=== PATIENT | male | born 1985 | race Caucasian/White ===

== ENCOUNTER 2016-10-30 03:01 | Emergency (ER) | payer BC ==
[2016-10-30] MEDS ORDERED: LORazepam 2 MG/ML MDV IVPUSH ONE (03:41)
[2016-10-30] MEDS ORDERED: MVI, Adult with Vitamin K 10 ML, Thiamine 100 MG, Folic Acid 1 MG in Sodium Chloride 0.... IV ONE ×4 (03:41)
[2016-10-30] MEDS ORDERED: Pantoprazole 40 MG Vial IVPUSH ONE (03:42)
[2016-10-30] MEDS ORDERED: LORazepam 2 MG/ML MDV IV PRN (03:42)
--- NOTE | 2016-10-30 03:49 | EDM.PDOCBH ---
ED HPI GENERAL MEDICAL PROBLEM - General Chief Complaint: Drug or Alcohol Abuse Stated Complaint: ALCOHOL DETOX Time Seen by Provider: 10/30/16 03:44 Source of Information: Reports: Patient, RN - History of Present Illness INITIAL COMMENTS - FREE TEXT/NARRATIVE: He was dropped off by his brother in the ER [place]. He states that he has a heavy alcohol use history drinking over one liter of whiskey daily for many months. He has been trying to decrease intake. Now he has muscle aches. He is scheduled to leave at about 9 am this am to go to [place] to catch a flight to [place] to enter rehabilitation for alcoholism. His brother was very tired and, according to the patient , asked if he could stay here until 9 am. He denies ongoing medical problems He has diffuse body aches and some chest pain no vomiting general malaise last drink about two hours ago. Left Upper Arm Pain Score (Numeric/FACES): 9 - Related Data Allergies Allergy/AdvReac Type Severity Reaction Status Date / Time No Known Allergies Allergy Verified 10/30/16 03:20 Home Meds: Home Meds . [No Known Home Meds] 05/02/14 [History] Past Medical History - Past Health History Medical/Surgical History: Denies Medical/Surgical History Cardiovascular History: Denies: Heart Failure, Hypertension, [place], Pulmonary Hypertension Respiratory History: Denies: COPD Gastrointestinal History: Denies: Cirrhosis Neurological History: Denies: CVA Psychiatric History: Reports: Addiction Endocrine/Metabolic History: Denies: Diabetes, Type I, Diabetes, Type II - Infectious Disease History Infectious Disease History: Reports: Chicken Pox Social & Family History - Family History Family Medical History: Noncontributory - Tobacco Use Smoking Status *Q: Never Smoker Second Hand Smoke Exposure: No - Caffeine Use Caffeine Use: Reports: None - Alcohol Use Days Per Week of Alcohol Use: 7 Number of Drinks Per Day: 10 Total Drinks Per Week: 70 - Recreational Drug Use Recreational Drug Use: No ED ROS GENERAL - Review of Systems Review Of Systems: See Below (as per HPI) ED EXAM, BEHAVIORAL HEALTH - Physical Exam Exam: See Below Text/Narrative:: alert pleasant and cooperative he appears anxious normal gait no tremor no confusion lungs CTA heart RRR without m abdomen non tender anterior chest wall tenderness no motor asymmetry EKG: NST ; borderline ST elevation COURSE, BEHAVIORAL HEALTH COMP - Course Vital Signs: Last Vital Signs Temp 97.4 F 10/30/16 03:05 Pulse 87 10/30/16 06:00 Resp 18 10/30/16 06:00 BP 109/61 10/30/16 06:00 Pulse Ox 96 10/30/16 06:00 Orders, Labs, Meds: Active Orders 24 hr Category Date Time Status Cardiac Monitoring [RC] . DIRECTED Care 10/30/16 03:50 Active EKG 12 Lead [EKG Documentation Completion] [RC] STAT Care 10/30/16 03:44 Active CXR [Chest 1V Frontal] [CR] Stat Exams 10/30/16 03:51 Taken LORazepam [Ativan] Med 10/30/16 03:42 Active 2 mg IV Q2H PRN Medication Orders Lorazepam (Ativan) 2 mg IV Q2H PRN PRN Reason: Anxiety Laboratory Tests 10/30/16 10/30/16 10/30/16 Range/Units 03:42 03:42 03:47 WBC 4.83 (4.0-11.0) K/uL RBC 5.38 (4.50-5.90) M/uL Hgb 12.5 L (13.0-17.0) g/dL Hct 37.3 L (38.0-50.0) % MCV 69.3 L (80.0-98.0) fL MCH 23.2 L (27.0-32.0) pg MCHC 33.5 (31.0-37.0) g/dL RDW Std Deviation 37.3 (28.0-62.0) fl RDW Coeff of Joe 15 (11.0-15.0) % Plt Count 215 (150-400) K/uL MPV 9.20 (7.40-12.00) fL Neut % (Auto) 43.5 L (48.0-80.0) % Lymph % (Auto) 43.3 H (16.0-40.0) % [place] % (Auto) 11.8 (0.0-15.0) % Eos % (Auto) 0.4 (0.0-7.0) % Baso % (Auto) 1.0 (0.0-1.5) % Neut # (Auto) 2.1 (1.4-5.7) K/uL Lymph # (Auto) 2.1 (0.6-2.4) K/uL [place] # (Auto) 0.6 (0.0-0.8) K/uL Eos # (Auto) 0.0 (0.0-0.7) K/uL Baso # (Auto) 0.1 (0.0-0.1) K/uL Nucleated RBC % 0.6 /100WBC Nucleated RBCs # 0 K/uL Sodium 140 (136-146) mmol/L Potassium 3.9 (3.5-5.1) mmol/L Chloride 103 (98-110) mmol/L Carbon Dioxide 23 (21-31) mmol/L BUN 14 (6.0-23.0) mg/dL Creatinine 0.8 (0.6-1.5) mg/dL Est Cr Clr Drug Dosing 155.55 mL/min Estimated GFR (MDRD) > 60.0 ml/min Glucose 109 (60-110) mg/dL Calcium 9.5 (8.8-10.8) mg/dL Magnesium 1.6 (1.5-2.3) mEq/L Total Bilirubin 1.0 (0.1-1.5) mg/dL AST 87 H (5-40) IU/L ALT 90 H (8-54) IU/L Alkaline Phosphatase 77 (40-150) Creatine Kinase 223 (9-236) IU/L Troponin I (0.0-0.29) NG/ML Total Protein 7.3 (6.0-8.0) g/dL Albumin 4.2 (3.5-5.0) g/dL Globulin 3.1 (2.0-3.5) g/dL Albumin/Globulin Ratio 1.4 (1.3-2.8) Urine Color Urine Appearance Urine pH (5.0-8.0) Ur Specific [place] (1.001-1.035) Urine Protein (NEGATIVE) mg/dL Urine Glucose (UA) (NEGATIVE) mg/dL Urine Ketones (NEGATIVE) mg/dL Urine Occult Blood (NEGATIVE) Urine Nitrite (NEGATIVE) Urine Bilirubin (NEGATIVE) Urine Urobilinogen (<2.0) EU/dL Ur Leukocyte Esterase (NEGATIVE) Urine RBC (0-2/HPF) Urine WBC (0-5/HPF) Ur Epithelial Cells (NONE-FEW) Urine Bacteria (NEGATIVE) Urine Mucus (NONE-MOD) Urine Opiates Screen (NEGATIVE) Ur Oxycodone Screen (NEGATIVE) Urine Methadone Screen (NEGATIVE) Ur Barbiturates Screen (NEGATIVE) Ur Phencyclidine Scrn (NEGATIVE) Ur Amphetamine Screen (NEGATIVE) U Methamphetamines Scrn (NEGATIVE) U Benzodiazepines Scrn (NEGATIVE) U Cocaine Metab Screen (NEGATIVE) U Marijuana (THC) Screen (NEGATIVE) Ethyl Alcohol 68.3 mg/dL 10/30/16 10/30/16 10/30/16 Range/Units 03:47 06:50 06:50 WBC (4.0-11.0) K/uL RBC (4.50-5.90) M/uL Hgb (13.0-17.0) g/dL Hct (38.0-50.0) % MCV (80.0-98.0) fL MCH (27.0-32.0) pg MCHC (31.0-37.0) g/dL RDW Std Deviation (28.0-62.0) fl RDW Coeff of Joe (11.0-15.0) % Plt Count (150-400) K/uL MPV (7.40-12.00) fL Neut % (Auto) (48.0-80.0) % Lymph % (Auto) (16.0-40.0) % [place] % (Auto) (0.0-15.0) % Eos % (Auto) (0.0-7.0) % Baso % (Auto) (0.0-1.5) % Neut # (Auto) (1.4-5.7) K/uL Lymph # (Auto) (0.6-2.4) K/uL [place] # (Auto) (0.0-0.8) K/uL Eos # (Auto) (0.0-0.7) K/uL Baso # (Auto) (0.0-0.1) K/uL Nucleated RBC % /100WBC Nucleated RBCs # K/uL Sodium (136-146) mmol/L Potassium (3.5-5.1) mmol/L Chloride (98-110) mmol/L Carbon Dioxide (21-31) mmol/L BUN (6.0-23.0) mg/dL Creatinine (0.6-1.5) mg/dL Est Cr Clr Drug Dosing mL/min Estimated GFR (MDRD) ml/min Glucose (60-110) mg/dL Calcium (8.8-10.8) mg/dL Magnesium (1.5-2.3) mEq/L Total Bilirubin (0.1-1.5) mg/dL AST (5-40) IU/L ALT (8-54) IU/L Alkaline Phosphatase (40-150) Creatine Kinase (9-236) IU/L Troponin I < 0.10 (0.0-0.29) NG/ML Total Protein (6.0-8.0) g/dL Albumin (3.5-5.0) g/dL Globulin (2.0-3.5) g/dL Albumin/Globulin Ratio (1.3-2.8) Urine Color YELLOW Urine Appearance CLEAR Urine pH 6.0 (5.0-8.0) Ur Specific [place] >= 1.030 (1.001-1.035) Urine Protein 30 (NEGATIVE) mg/dL Urine Glucose (UA) NEGATIVE (NEGATIVE) mg/dL Urine Ketones NEGATIVE (NEGATIVE) mg/dL Urine Occult Blood NEGATIVE (NEGATIVE) Urine Nitrite NEGATIVE (NEGATIVE) Urine Bilirubin NEGATIVE (NEGATIVE) Urine Urobilinogen 1.0 (<2.0) EU/dL Ur Leukocyte Esterase NEGATIVE (NEGATIVE) Urine RBC 0-1 (0-2/HPF) Urine WBC 2-5 (0-5/HPF) Ur Epithelial Cells FEW (NONE-FEW) Urine Bacteria FEW (NEGATIVE) Urine Mucus MANY (NONE-MOD) Urine Opiates Screen NEGATIVE (NEGATIVE) Ur Oxycodone Screen NEGATIVE (NEGATIVE) Urine Methadone Screen NEGATIVE (NEGATIVE) Ur Barbiturates Screen NEGATIVE (NEGATIVE) Ur Phencyclidine Scrn NEGATIVE (NEGATIVE) Ur Amphetamine Screen NEGATIVE (NEGATIVE) U Methamphetamines Scrn NEGATIVE (NEGATIVE) U Benzodiazepines Scrn NEGATIVE (NEGATIVE) U Cocaine Metab Screen POSITIVE (NEGATIVE) U Marijuana (THC) Screen NEGATIVE (NEGATIVE) Ethyl Alcohol mg/dL 10/30/16 Range/Units 06:52 WBC (4.0-11.0) K/uL RBC (4.50-5.90) M/uL Hgb (13.0-17.0) g/dL Hct (38.0-50.0) % MCV (80.0-98.0) fL MCH (27.0-32.0) pg MCHC (31.0-37.0) g/dL RDW Std Deviation (28.0-62.0) fl RDW Coeff of Joe (11.0-15.0) % Plt Count (150-400) K/uL MPV (7.40-12.00) fL Neut % (Auto) (48.0-80.0) % Lymph % (Auto) (16.0-40.0) % [place] % (Auto) (0.0-15.0) % Eos % (Auto) (0.0-7.0) % Baso % (Auto) (0.0-1.5) % Neut # (Auto) (1.4-5.7) K/uL Lymph # (Auto) (0.6-2.4) K/uL [place] # (Auto) (0.0-0.8) K/uL Eos # (Auto) (0.0-0.7) K/uL Baso # (Auto) (0.0-0.1) K/uL Nucleated RBC % /100WBC Nucleated RBCs # K/uL Sodium (136-146) mmol/L Potassium (3.5-5.1) mmol/L Chloride (98-110) mmol/L Carbon Dioxide (21-31) mmol/L BUN (6.0-23.0) mg/dL Creatinine (0.6-1.5) mg/dL Est Cr Clr Drug Dosing mL/min Estimated GFR (MDRD) ml/min Glucose (60-110) mg/dL Calcium (8.8-10.8) mg/dL Magnesium (1.5-2.3) mEq/L Total Bilirubin (0.1-1.5) mg/dL AST (5-40) IU/L ALT (8-54) IU/L Alkaline Phosphatase (40-150) Creatine Kinase (9-236) IU/L Troponin I < 0.10 (0.0-0.29) NG/ML Total Protein (6.0-8.0) g/dL Albumin (3.5-5.0) g/dL Globulin (2.0-3.5) g/dL Albumin/Globulin Ratio (1.3-2.8) Urine Color Urine Appearance Urine pH (5.0-8.0) Ur Specific [place] (1.001-1.035) Urine Protein (NEGATIVE) mg/dL Urine Glucose (UA) (NEGATIVE) mg/dL Urine Ketones (NEGATIVE) mg/dL Urine Occult Blood (NEGATIVE) Urine Nitrite (NEGATIVE) Urine Bilirubin (NEGATIVE) Urine Urobilinogen (<2.0) EU/dL Ur Leukocyte Esterase (NEGATIVE) Urine RBC (0-2/HPF) Urine WBC (0-5/HPF) Ur Epithelial Cells (NONE-FEW) Urine Bacteria (NEGATIVE) Urine Mucus (NONE-MOD) Urine Opiates Screen (NEGATIVE) Ur Oxycodone Screen (NEGATIVE) Urine Methadone Screen (NEGATIVE) Ur Barbiturates Screen (NEGATIVE) Ur Phencyclidine Scrn (NEGATIVE) Ur Amphetamine Screen (NEGATIVE) U Methamphetamines Scrn (NEGATIVE) U Benzodiazepines Scrn (NEGATIVE) U Cocaine Metab Screen (NEGATIVE) U Marijuana (THC) Screen (NEGATIVE) Ethyl Alcohol mg/dL Medications Generic Name Dose Route Start Last Admin Trade Name Freq PRN Reason Stop Dose Admin Lorazepam 2 mg 10/30/16 03:42 Ativan IV Q2H PRN Anxiety Discontinued Medications Generic Name Dose Route Start Last Admin Trade Name Freq PRN Reason Stop Dose Admin Multivitamins/Minerals 10 ml/ 1,011.2 mls @ 250 mls/hr 10/30/16 03:41 04:03 Thiamine HCl 100 mg/ Folic IV 10/30/16 07:43 250 mls/hr Acid 1 mg/ Sodium Chloride ONETIME ONE Administration Lorazepam 2 mg 10/30/16 03:41 10/30/16 03:54 Ativan IVPUSH 10/30/16 03:42 2 mg ONETIME ONE Administration Pantoprazole Sodium 80 mg 10/30/16 03:42 10/30/16 03:55 Protonix Iv IVPUSH 10/30/16 03:43 80 mg .BOLUS ONE Administration Re-Assessment/Re-Exam: he feels improved at discharge Departure - Departure Time of Disposition: 07:45 Disposition: Home, Self-Care 01 Condition: Fair Clinical Impression: Alcoholism - Discharge Information Referrals: PCP,None [Primary Care Provider] - Forms: ED Department Discharge Additional Instructions: follow up with alcohol rehab as previously planned - My Orders Last 24 Hours: My Active Orders 10/30/16 03:42 LORazepam [Ativan] 2 mg IV Q2H PRN 10/30/16 03:44 EKG 12 Lead [EKG Documentation Completion] [RC] STAT 10/30/16 03:50 Cardiac Monitoring [RC] . DIRECTED 10/30/16 03:51 CXR [Chest 1V Frontal] [CR] Stat - Assessment/Plan Last 24 Hours: My Active Orders 10/30/16 03:42 LORazepam [Ativan] 2 mg IV Q2H PRN 10/30/16 03:44 EKG 12 Lead [EKG Documentation Completion] [RC] STAT 10/30/16 03:50 Cardiac Monitoring [RC] . DIRECTED 10/30/16 03:51 CXR [Chest 1V Frontal] [CR] Stat
[2016-10-30 04:07] LABS: CHLORIDE,CL 103 mmol/L (98-110); SODIUM,NA 140 mmol/L (136-146)
[2016-10-30 08:12] VITALS: BP 132/84
--- NOTE | 2016-10-30 13:28 | CR ---
EXAM DATE: 10/30/16 PATIENT'S AGE: 31 Patient: ELZA ROSE Facility: [place], [place] Site . Site : [id number] Study: XRay Chest [id number]/[id number] 4:14:09 AM Ordering Physician: Doctor Harris Final Report: INDICATION: Chest pain back pain TECHNIQUE: Chest radiograph 1 view COMPARISON: 07/11/12 FINDINGS: Cardiovascular and mediastinum: The cardiac silhouette is normal in appearance and size. Mediastinum is within normal limits. Lungs and pleural space: Both lungs are unremarkable in appearance. No sign of pleural effusion. No pneumothorax is seen. Bones and soft tissues: No significant findings. IMPRESSION: 1. No acute cardiopulmonary disease seen. Dictated by: New Arellano MD @ 10/30/2016 04:15:08 (Electronic Signature) Report Signed by Proxy. SHELLEY
== END 2016-10-30 08:08 | disposition home or self-care (01) ==
LOC: MW.ED 03:01
DX: F10.20 Alcohol dependence, uncomplicated (principal); Y90.3 Blood alcohol level of 60-79 mg/100 ml
CPT/HCPCS: 71010; 80053; 80305; 81001; 82550; 83735; 84484; 85025; 93005; 96365; 96366; 96375; 99285; C9113; G0480; J2060; J3411; J7040; 99283

== ENCOUNTER 2021-09-11 17:16 | Emergency (ER) | payer BC, MEDICAID ==
[2021-09-11 17:30] VITALS: BP 131/92; PULSE 88
== END 2021-09-11 17:29 | disposition left against medical advice (07) ==
LOC: MW.ED 17:16
DX: Z53.21 Procedure and treatment not carried out due to patient leaving prior to being seen by health care provider (principal)

== ENCOUNTER 2021-11-14 08:00 | Inpatient (IN) | payer MEDICAID ==
[2021-11-14] MEDS ORDERED: PHENobarbital Sodium 130 MG/ML SDV IVPUSH ONE ×2 (10:00→11:48)
[2021-11-14] MEDS ORDERED: Ondansetron 4 MG/2 ML SDV IVPUSH ONE (10:00)
[2021-11-14] MEDS ORDERED: Lactated Ringers 1,000 ML IV ONE ×3 (10:04→17:30)
[2021-11-14] MEDS ORDERED: Lidocaine 2% Viscous Solution 15 ML UD PO ONE (11:45)
[2021-11-14] MEDS ORDERED: Metoclopramide 10 MG/2 ML SDV ONE (11:45)
[2021-11-14] MEDS ORDERED: chlordiazePOXIDE 25 MG Cap PO ONE (17:09)
[2021-11-14] MEDS ORDERED: Pantoprazole 40 MG in Sodium Chloride 0.9% 10 ML IV ONE (19:20)
[2021-11-15] MEDS ORDERED: chlordiazePOXIDE 25 MG Cap PO ONE ×2 (01:00→09:17)
[2021-11-15] MEDS ORDERED: Lactated Ringers 1,000 ML IV ONE (03:15)
[2021-11-15] MEDS ORDERED: Pantoprazole 40 MG in Sodium Chloride 0.9% 10 ML IV ONE (06:30)
[2021-11-15] MEDS ORDERED: Potassium Chloride 20 MEQ Tab.ER PO ONE (09:17)
[2021-12-28 14:59] LABS: CARBON DIOXIDE,CO2 29.8 mmol/L (21.0-32.0); CHLORIDE,CL 99 mmol/L (98-107); POTASSIUM,K 3.3 mmol/L (3.5-5.1); SODIUM,NA 138 mmol/L (136-148)
[2021-12-28 15:00] LABS: BLOOD UREA NITROGEN,BUN 10 mg/dL (7.0-18.0); ESTIMATED GFR 118 mL/min (>60); GLUCOSE RANDOM 106 mg/dL (74-106)
[2022-01-01 18:48] LABS: CHLORIDE,CL 98 mmol/L (98-107); POTASSIUM,K 3.9 mmol/L (3.5-5.1); SODIUM,NA 137 mmol/L (136-148)
[2022-01-01 18:49] LABS: BLOOD UREA NITROGEN,BUN 11 mg/dL (7.0-18.0); CARBON DIOXIDE,CO2 23.3 mmol/L (21.0-32.0); ESTIMATED GFR 114 mL/min (>60); GLUCOSE RANDOM 117 mg/dL (74-106)
== END 2021-11-25 13:00 | disposition home or self-care (01) | DRG 897 ==
LOC: MW.ED 08:00 → MW.ZCENSUS 15:39 → MW.ED 16:10
PROVIDERS: ATTEND Student in an Organized Health Care Education/Training Program
DX: F10.239 Alcohol dependence with withdrawal, unspecified (principal); I48.91 Unspecified atrial fibrillation; R74.01 Elevation of levels of liver transaminase levels; Z20.822 Contact with and (suspected) exposure to COVID-19
CPT/HCPCS: 36415; 80053; 80305-QW; 80307; 81001; 83690; 83735; 84100; 84439; 84443; 85025; 93005; 93010; 96361; 96374; 96375; 96376; 99221; 99238; 99284; 99285-25; A9270-GY; C9113; J2405; J2560; J2765; J3490; J7120; U0002

== ENCOUNTER 2022-01-11 11:16 | Emergency (ER) | payer MEDICAID, OTHER ==
[2022-01-11 11:55] VITALS: BP 140/105; PULSE 92
[2022-01-11 13:36] LABS: C. TRACHOMATIS BY PCR NOT DETECTED; N. GONORRHOEAE BY PCR NOT DETECTED
== END 2022-01-11 14:21 | disposition home or self-care (01) ==
LOC: MW.ED 11:16
DX: N34.2 Other urethritis (principal); Z72.0 Tobacco use
CPT/HCPCS: 36415; 87389; 87491; 87591; 99283